=== PATIENT | female | born 1960 | race Caucasian/White ===

== ENCOUNTER → 2017-09-23 | Outpatient (CLI) | payer BC ==
[~2017-09-23] MED LIST: Aspirin EC81 MG PO; CRUTCH2 XX; DESL5 PO; DIAZ5 PO; ERGO50000 PO; FEXO60 PO; HYDMOR2 PO; IBUP200 PO; KETO10 PO; Keflex500 MG PO; LEVSOD100 PO; LEVSOD150 PO; LEVSOD25 PO; LIOT25 PO; METO50 PO; MONT10T PO; Norco 5-325 Ta1 EACH PO; OXYACE5T PO; Percocet 5-3251 EACH PO; Phentermine HCl30 MG PO; RXHYDMOR2 PO; [UNRECOGNIZED DRUG - OTHER]; [UNRECOGNIZED DRUG - REMARK]
[2017-09-23 11:29] LABS: BASOPHILS ABSOLUTE AUTO 0.06 K/mm3 (0.00-0.23); BASOPHILS PERCENT AUTO 1 % (0-2); EOSINOPHILS ABSOLUTE AUTO 0.27 K/mm3 (0.00-0.68); EOSINOPHILS PERCENT AUTO 5 % (0-6); Hematocrit 39.5 % (33.0-51.0); Hemoglobin 12.9 g/dL (11.5-16.0); IMMATURE GRAN ABSOLUTE AUTO 0.01 K/mm3 (0.00-0.10); IMMATURE GRAN PERCENT AUTO 0 % (0-1); LYMPHOCYTES ABSOLUTE AUTO 1.44 K/mm3 (0.84-5.20); LYMPHOCYTES PERCENT AUTO 27 % (21-46); MONOCYTES ABSOLUTE AUTO 0.67 K/mm3 (0.16-1.47); MONOCYTES PERCENT AUTO 13 % (4-13); Mean Corpuscular HGB 29.7 pg (26.0-34.0); Mean Corpuscular HGB Conc 32.7 g/dL (31.5-36.5); Mean Corpuscular Volume 91 fL (80-100); Mean Platelet Volume 10.7 fL (9.1-12.4); NEUTROPHILS ABSOLUTE AUTO 2.84 K/mm3 (1.96-9.15); NEUTROPHILS PERCENT AUTO 54 % (41-73); Platelet Count 324 K/mm3 (150-400); RDW Coefficient Variation 12.2 % (11.7-14.2); RDW Standard Deviation 40.7 fL (35.1-46.3); Red Blood Cell Count 4.35 M/mm3 (3.80-5.20); White Blood Cell Count 5.29 K/mm3 (4.00-11.30)
[2017-09-23 11:45] LABS: Alanine Aminotransfer (ALT/SGP 24 U/L (12-78); Albumin, Blood 3.6 g/dL (3.4-5.0); Alk Phos 90 U/L (50-136); Anion Gap 4 mmol/L (6-16); Aspartate Aminotrans (AST/SGOT 14 U/L (12-37); Bilirubin, Total 0.3 mg/dL (0.1-1.0); Blood Urea Nitrogen 16 mg/dL (8-24); CHOL/HDL RATIO 2.6; CO2, Blood 28 mmol/L (21-32); Calcium, Blood 8.6 mg/dL (8.5-10.1); Chloride, Blood 109 mmol/L (98-108); Cholesterol 149 mg/dL (50-200); Free Thyroxine 1.05 ng/dL (0.70-1.60); Globulin, Blood 3.7 g/dL (2.2-4.0); Glucose, Blood 91 mg/dL (70-99); HDL Cholesterol 57 mg/dL (>39); LDL/HDL RATIO 1.4; Low Density Lipoprotein Chol 81 mg/dL (0-110); Potassium, Blood 4.8 mmol/L (3.5-5.5); Sodium, Blood 141 mmol/L (136-145); Total Protein, Blood 7.3 g/dL (6.4-8.2); Triglycerides 56 mg/dL (30-160); Very Low Density Lipoprot Chol 11 mg/dL (6-32)
[2017-09-23 11:58] LABS: Bun/Creatinine Ratio 17.2 (12.0-20.0); Creatinine, Blood 0.93 mg/dL (0.40-1.00); Glomerular Filtration Rate >60 (60-); Thyroid Stimulating Hormone 0.186 uIU/mL (0.360-4.800)
== END | disposition home or self-care (01) ==
LOC: LAB 11:00
PROVIDERS: Internal Medicine
DX: Z00.00 Encounter for general adult medical examination without abnormal findings (principal); E78.5 Hyperlipidemia, unspecified; E03.9 Hypothyroidism, unspecified; J30.89 Other allergic rhinitis; R53.83 Other fatigue
CPT/HCPCS: 80053; 80061; 84439; 84443; 84481; 85025

== ENCOUNTER 2018-02-20 11:21 | Emergency (ER) | payer BC ==
[~2018-02-20] VITALS: Ht 175.3 cm; Wt 78.9 kg
[~2018-02-20 11:21] MED LIST changes: -CRUTCH2 XX; -Norco 5-325 Ta1 EACH PO
[2018-02-20] MEDS ORDERED: Norco 5-325 Ta1 EACH PO (12:42)
[2018-02-20] MEDS ORDERED: CRUTCH2 XX (12:44)
== END 2018-02-20 13:31 | disposition home or self-care (01) ==
LOC: ER 11:21
DX: S82.62XA Displaced fracture of lateral malleolus of left fibula, initial encounter for closed fracture (principal); E03.9 Hypothyroidism, unspecified; Z88.8 Allergy status to other drugs, medicaments and biological substances; Z88.2 Allergy status to sulfonamides; Z88.1 Allergy status to other antibiotic agents; Z79.899 Other long term (current) drug therapy; Z79.82 Long term (current) use of aspirin; W01.10XA Fall on same level from slipping, tripping and stumbling with subsequent striking against unspecified object, initial encounter
CPT/HCPCS: 29515; 73610; 96372; 99283-25; J1885

== ENCOUNTER 2018-07-25 05:55 | Day surgery (SDC) | payer BC ==
[~2018-07-25] VITALS: Ht 175.3 cm; Wt 81.7 kg
[~2018-07-25 05:55] MED LIST changes: +BUDE10.22 INH; +CRUTCH2 XX; +DILT30 PO; +Flovent 44 mc10.6 GM; +Hair, Skin & N1 EACH PO; +Norco 5-325 Ta1 EACH PO; +Oxybutynin Chlor5 M1 PO; +Pataday2.5 ML BOTHEYES
--- NOTE | 2018-07-25 06:17 | NUR ---
History, Chart, Medications and Allergies reviewed before start of procedure. Patient confirms NPO status and agrees with scheduled surgery. Patient States Post-Procedure ride home has been arranged with his or her friend, Hoa.
--- NOTE | 2018-07-25 08:54 | NUR ---
STATES HANDS AND FEET SWOLLEN PRIOR TO SURGERY
--- NOTE | 2018-07-25 09:38 | NUR ---
pt arrived to room 231 from pacu pt is s/p a&p repair and with sling tvt and cystoscopy pt denies pain except l shoulder warm blanket placed also encouraged pt to drink soda to belch or amb to help pass gas pt has hint of pink to baldwin no vag bleeding pt cold warm blankets and kpad placed
--- NOTE | 2018-07-25 11:07 | NUR ---
DR Fior DIAZ BY TO SEE PT SMITA EMPTIED DISCUSSED ORDERING ORAL NORCO STATED SHE DID ON THE PAPER ORDER FOR DAY SURG WILL FAX
--- NOTE | 2018-07-25 12:09 | NUR ---
vag bleeding new pad placed pt req pain meds 1 tab norco given with soup
[2018-07-25] MEDS ORDERED: IBUP800 PO (14:04)
--- NOTE | 2018-07-25 14:13 | NUR ---
PT REQ A SNACK ICE CREAM GIVEN
--- NOTE | 2018-07-25 16:28 | NUR ---
pt oob to void agian still having dizziness and nausea b/p when up was 89/47
--- NOTE | 2018-07-25 17:35 | NUR ---
LR BOLUS COMPLETE PT STILL GETTING DIZZY B/P AFTER GETTING BACK INTO BED AFTER VOID WAS 102/60
--- NOTE | 2018-07-25 18:30 | NUR ---
PT EATING DINNER PT STATED THE DIZZINESS IS GETTING BETTER OVERALL NAUSEA IS BETTER
--- NOTE | 2018-07-26 05:24 | NUR ---
POD 1 S/P A&P REPAIR ON EXT RECOVERY. HAS DONE VERY WELL. DENIES ANY DIZZINESS WHEN OOB. DENIES N/V. PAIN IS MINIMAL AND DENIES ANY NEED FOR PAIN MEDICATION. VAG BLEEDING IS MINIMAL. STILL SOMEWHAT HYPOTENSIVE BUT REMAINS ASYMPTOMATIC. PLAN FOR DC HOME TODAY. CALL LIGHT IN REACH.
--- NOTE | 2018-07-26 07:47 | NUR ---
pt sleeping wakes to verbal stimuli pt stated no dizziness last 2 times she has got up to void also voiding around 300 each time hint of pink and small amt of vag bleeding on germaine pad no nausea this am pain 07/28
--- NOTE | 2018-07-26 09:36 | NUR ---
discharge instructions reviewed with pt verbalized hermila breakfast iv sl awaiting ride
--- NOTE | 2018-07-26 11:20 | NUR ---
WC ESCORT TO CAR NO ACUTE CHANGES
== END 2018-07-26 11:13 | disposition home or self-care (01) ==
LOC: ORSCMMR 05:55 → ORD 07:30 → ORSCMMR 07:30 → SURS 09:29 → ORSCMMR 07-26 11:13
PROVIDERS: Obstetrics & Gynecology
PROC: 0TSD0ZZ Reposition Urethra, Open Approach (ICD-10-PCS; principal; 2018-07-25 07:30)
PROC: 0TJB8ZZ Inspection of Bladder, Via Natural or Artificial Opening Endoscopic (ICD-10-PCS; principal; 2018-07-25 07:30)
PROC: 0JQC0ZZ Repair Pelvic Region Subcutaneous Tissue and Fascia, Open Approach (ICD-10-PCS; principal; 2018-07-25 07:30)
DX: N81.10 Cystocele, unspecified (principal); N39.3 Stress incontinence (female) (male); E03.9 Hypothyroidism, unspecified; Z79.899 Other long term (current) drug therapy
CPT/HCPCS: C1771; J0690; J1100; J1885; J2250; J2405; J2550; J3010; J7030; J7120

== ENCOUNTER → 2018-08-03 | Outpatient (CLI) | payer BC ==
[~2018-08-03] MED LIST changes: +IBUP800 PO
[2018-08-03 18:51] LABS: Bilirubin, Urine Neg (Neg); Blood, Urine 5+ (Neg); Glucose Qualitative, Urine Neg (Neg); Ketones, Urine Neg (Neg); Leukocyte Esterase, Urine 1+ (Neg); Nitrite, Urine Neg (Neg); Protein, Urine Neg (Neg); Urobilinogen, Urine NORM (Normal)
[2018-08-03 19:41] LABS: Appearance, Urine Hazy (Clear); Color, Urine Yellow (P-Yellow)
[2018-08-03 19:46] LABS: Bacteria Mod /hpf; Calcium Oxalate Crystals Mod /hpf; Squamous Epithelial Cells Few /hpf (Few)
[2018-08-03 19:50] LABS: Mucus Light (0-Heavy)
== END | disposition home or self-care (01) ==
LOC: LAB 18:15 → LAB SHORT 18:15
PROVIDERS: Obstetrics & Gynecology
DX: R30.0 Dysuria (principal)
CPT/HCPCS: 81001; 87086

== ENCOUNTER 2018-09-28 09:53 | Day surgery (SDC) | payer BC | END 2018-09-28 23:01 | disposition home or self-care (01) | LOC: CT 09:53 | DX: N94.89 Other specified conditions associated with female genital organs and menstrual cycle (principal) | CPT/HCPCS: 49406; 88108 ==

== ENCOUNTER → 2019-03-06 | Outpatient (CLI) | payer BC ==
[2019-03-08 14:07] LABS: HPV 16 Negative (Negative); HPV 18 Negative (Negative); HPV OTHER HR TYPES Negative (Negative)
== END | disposition home or self-care (01) ==
LOC: LAB 09:49 → LAB SHORT 09:49
PROVIDERS: Obstetrics & Gynecology
DX: Z01.419 Encounter for gynecological examination (general) (routine) without abnormal findings (principal)
CPT/HCPCS: 87624; G0123

== ENCOUNTER → 2020-02-23 | Outpatient (CLI) | payer OTHER, BC ==
[~2020-02-23] MED LIST changes: +Ciloxan5 ML LEFTEYE
[2020-02-24 08:09] LABS: HBSAG SCREEN Negative (Negative); HCV ANTIBODY 0.1 (0.0-0.9); HIV SCREEN 4TH GENERATION WRFX Non Reactive (Non Reactive)
== END | disposition home or self-care (01) ==
LOC: LAB SHORT 15:44 → LAB EV 15:44
PROVIDERS: Physician Assistant Surgical
DX: Z20.9 Contact with and (suspected) exposure to unspecified communicable disease (principal)
CPT/HCPCS: 84460; 86317; 86803; 87340; 87389

== ENCOUNTER → 2020-06-28 | Outpatient (CLI) | payer OTHER ==
[2020-06-29 08:09] LABS: HCV ANTIBODY <0.1 (0.0-0.9); HIV SCREEN 4TH GENERATION WRFX Non Reactive (Non Reactive)
== END | disposition home or self-care (01) ==
LOC: EDSTATUS 11:56 → LAB EV 14:51 → LAB SHORT 14:51
PROVIDERS: General Practice
DX: Z20.9 Contact with and (suspected) exposure to unspecified communicable disease (principal)
CPT/HCPCS: 84460; 86317; 86803; 87389

== ENCOUNTER → 2021-07-17 | Outpatient (CLI) | payer BC ==
[2021-07-22 15:08] LABS: HPV 16 Negative (Negative); HPV 18 Negative (Negative); HPV OTHER HR TYPES Negative (Negative)
== END | disposition home or self-care (01) ==
LOC: LAB SHORT 18:40
PROVIDERS: Obstetrics & Gynecology
DX: Z01.419 Encounter for gynecological examination (general) (routine) without abnormal findings (principal)
CPT/HCPCS: 87624; G0123

== ENCOUNTER → 2022-08-06 | Outpatient (CLI) | payer BC ==
[2022-08-08 14:10] LABS: HPV 16 Negative (Negative); HPV 18 Negative (Negative); HPV OTHER HR TYPES Negative (Negative)
== END | disposition home or self-care (01) ==
LOC: RAD SHORT 10:15
PROVIDERS: Obstetrics & Gynecology
DX: Z01.419 Encounter for gynecological examination (general) (routine) without abnormal findings (principal)
CPT/HCPCS: 87624; G0145

== ENCOUNTER 2022-08-26 23:23 | Emergency (ER) | payer BC ==
[~2022-08-26] VITALS: Ht 172.7 cm; Wt 81.7 kg
[2022-08-26] MEDS ORDERED: GEMTESA75 MG PO (23:36)
[2022-08-26] MEDS ORDERED: SYNTHROID125 MC1 (23:37)
[2022-08-27 00:03] LABS: BASOPHILS PERCENT AUTO 1 % (0-2); EOSINOPHILS ABSOLUTE AUTO 0.46 K/mm3 (0.00-0.68); EOSINOPHILS PERCENT AUTO 5 % (0-6); Hematocrit 39.1 % (33.0-51.0); Hemoglobin 13.6 g/dL (11.5-16.0); IMMATURE GRAN ABSOLUTE AUTO 0.03 K/mm3 (0.00-0.10); IMMATURE GRAN PERCENT AUTO 0 % (0-1); LYMPHOCYTES ABSOLUTE AUTO 3.52 K/mm3 (0.84-5.20); LYMPHOCYTES PERCENT AUTO 39 % (21-46); MONOCYTES ABSOLUTE AUTO 0.82 K/mm3 (0.16-1.47); MONOCYTES PERCENT AUTO 9 % (4-13); Mean Corpuscular HGB 30.2 pg (26.0-34.0); Mean Corpuscular HGB Conc 34.8 g/dL (31.5-36.5); Mean Corpuscular Volume 87 fL (80-100); Mean Platelet Volume 10.5 fL (9.1-12.4); NEUTROPHILS ABSOLUTE AUTO 4.17 K/mm3 (1.96-9.15); NEUTROPHILS PERCENT AUTO 46 % (41-73); Platelet Count 356 K/mm3 (150-400); RDW Coefficient Variation 12.2 % (11.7-14.2); RDW Standard Deviation 38.9 fL (35.1-46.3)
[2022-08-27 00:24] LABS: Albumin, Blood 3.7 g/dL (3.4-5.0); Bilirubin, Total 0.4 mg/dL (0.1-1.0); Bun/Creatinine Ratio 17.8 (12.0-20.0); Calcium, Blood 9.1 mg/dL (8.5-10.1); Creatinine, Blood 1.01 mg/dL (0.40-1.00); Globulin, Blood 3.7 g/dL (2.2-4.0); Potassium, Blood 3.5 mmol/L (3.5-5.5); Total Protein, Blood 7.4 g/dL (6.4-8.2)
== END 2022-08-27 04:41 | disposition home or self-care (01) ==
LOC: ER 23:23
PROVIDERS: Emergency Medicine
DX: R07.9 Chest pain, unspecified (principal); E03.9 Hypothyroidism, unspecified; Z88.2 Allergy status to sulfonamides; Z88.1 Allergy status to other antibiotic agents; Z88.8 Allergy status to other drugs, medicaments and biological substances; Z79.899 Other long term (current) drug therapy
CPT/HCPCS: 71045; 80053; 84484; 85025; 93005; 93010; 99285-25

== ENCOUNTER 2023-04-28 07:37 | Day surgery (SDC) | payer BC ==
[~2023-04-28] VITALS: Ht 175.3 cm; Wt 84.9 kg
[~2023-04-28 07:37] MED LIST changes: +GEMTESA75 MG PO; +SYNTHROID125 MC1
[2023-04-28] MEDS ORDERED: Ventolin5 MG/1 ML (08:08)
[2023-04-28] MEDS ORDERED: EPIPEN0.3 MG/0.3 (08:08)
[2023-04-28] MEDS ORDERED: 1/2 NS 250ml250 ML (08:08)
[2023-04-28] MEDS ORDERED: CLIMARA1 EACH (08:08)
[2023-04-28] MEDS ORDERED: ASPI81CH (08:08)
[2023-04-28] MEDS ORDERED: MONT5TCH (08:09)
[2023-04-28] MEDS ORDERED: Prozac40 MG (08:09)
[2023-04-28] MEDS ORDERED: METO25ER (08:09)
[2023-04-28] MEDS ORDERED: Phentermine HCl30 MG (08:09)
[2023-04-28 10:27] VITALS: BP 109/86
== END 2023-04-28 10:52 | disposition home or self-care (01) ==
LOC: ORSCSDS 07:37
PROVIDERS: Internal Medicine Gastroenterology
PROC: 0D757ZZ Dilation of Esophagus, Via Natural or Artificial Opening (ICD-10-PCS; principal; 2023-04-28 09:00)
PROC: 0DJD8ZZ Inspection of Lower Intestinal Tract, Via Natural or Artificial Opening Endoscopic (ICD-10-PCS; principal; 2023-04-28 09:00)
PROC: 0DB78ZX Excision of Stomach, Pylorus, Via Natural or Artificial Opening Endoscopic, Diagnostic (ICD-10-PCS; principal; 2023-04-28 09:00)
DX: Z12.11 Encounter for screening for malignant neoplasm of colon (principal); R13.10 Dysphagia, unspecified; K57.30 Diverticulosis of large intestine without perforation or abscess without bleeding; K64.8 Other hemorrhoids; I47.10 Supraventricular tachycardia, unspecified; E78.5 Hyperlipidemia, unspecified; E03.9 Hypothyroidism, unspecified; Z79.899 Other long term (current) drug therapy; Z79.82 Long term (current) use of aspirin
CPT/HCPCS: 43239; 43450; G0121; 88305; 88342; J2704; J7120

== ENCOUNTER 2023-05-12 06:14 | Observation (INO) | payer BC ==
[~2023-05-12] VITALS: Ht 175.3 cm; Wt 89.6 kg
[~2023-05-12 06:14] MED LIST changes: +1/2 NS 250ml250 ML; +ASPI81CH; +CLIMARA1 EACH; +EPIPEN0.3 MG/0.3; +METO25ER PO; +MONT5TCH; +Prozac40 MG PO; -SYNTHROID125 MC1; +SYNTHROID125 MC1 PO; +Ventolin5 MG/1 ML
--- NOTE | 2023-05-12 07:40 | NUR ---
05/12/23 0740 Lalitha Hernandez PT DELAYED GOING BACK TO OR. DR DONNELLY RETURNED TO SEE PT TO HAVE CONSENT FORM SIGNED.
--- NOTE | 2023-05-12 08:21 | NUR ---
05/12/23 0821 Marylou Hinojosa LIDOCAINE 2% WITH EPI 1:100,000 MIXED 1:1 WITH NORMAL SALINE TO MAKE LIDOCAINE 1% WITH EPI 1:200,000 FOR INJECTION AT THE OPSITE BY DR DONOVAN. 30ML OF EPI (1MG/ML) USED TO SOAK PLEDGETS FOR NASAL PACKING DONE BY DR DONOVAN.
--- NOTE | 2023-05-12 12:00 | NUR ---
05/12/23 [place] GIBSON PT WAS PLACED ON 10L O2 VIA FACE TENT. O2 HAD DROPPED TO 92% CURRENTLY PT O2 IS 100%. WILL DECREASE O2 TO 5L. PT DENIES PAIN AND NAUSEA.
--- NOTE | 2023-05-12 12:39 | NUR ---
05/12/23 1239 AZ HOWELL PT STATES PAIN NOW 10/26. ICE TO BRIDGE OF HER NOSE. PT COMFORTABLE IN BED. PT WAS PLACED BACK ON OXYGEN 5L AFTER DOSE OF FENTANYL DECREASED O2 TO 93% ON RA
[2023-05-12 17:46] VITALS: BP 138/80
--- NOTE | 2023-05-12 17:55 | NUR ---
PATIENT ARRIVED TODAY FROM DAY SURGERY. POD 0 SENOPLASTY PATIENT IS DROWSY BUT IS A&OX4. PATIENT HAD A SMALL AMOUNT OF EMESIS UPON ARRIVAL TO THE UNIT WHICH CAUSED HER NOSE TO START BLEEDING. THIS NURSE GAVE IV ZOFRAN AND FENTANYL TO MANAGE THE NAUSEA AND PAIN. THIS NURSE APPLIED A SMALL ROLL OF GAUZE WITH MEDIPORE TAPE UNDER HER NOSE THAT IS C/D/I AT THE MOMENT. SHE IS TOLERATING SMALL AMOUNTS OF PO INTAKE. SHE IS CURRENTLY LAYING IN BED WITH HOB ABOVE 30 DEGREES WITH ICE PACKS ON HER UPPER BACK/NOSE. CALL LIGHT WITHIN REACH.
[2023-05-12 18:03] LABS: BASOPHILS ABSOLUTE AUTO 0.02 K/mm3 (0.00-0.23); BASOPHILS PERCENT AUTO 0 % (0-2); EOSINOPHILS PERCENT AUTO 0 % (0-6); Hematocrit 35.7 % (33.0-51.0); Hemoglobin 11.7 g/dL (11.5-16.0); IMMATURE GRAN ABSOLUTE AUTO 0.12 K/mm3 (0.00-0.10); IMMATURE GRAN PERCENT AUTO 1 % (0-1); LYMPHOCYTES ABSOLUTE AUTO 1.14 K/mm3 (0.84-5.20); LYMPHOCYTES PERCENT AUTO 8 % (21-46); MONOCYTES ABSOLUTE AUTO 0.27 K/mm3 (0.16-1.47); MONOCYTES PERCENT AUTO 2 % (4-13); Mean Corpuscular HGB 29.8 pg (26.0-34.0); Mean Corpuscular HGB Conc 32.8 g/dL (31.5-36.5); Mean Corpuscular Volume 91 fL (80-100); Mean Platelet Volume 10.3 fL (9.1-12.4); NEUTROPHILS ABSOLUTE AUTO 12.34 K/mm3 (1.96-9.15); NEUTROPHILS PERCENT AUTO 89 % (41-73); Platelet Count 336 K/mm3 (150-400); RDW Coefficient Variation 13.5 % (11.7-14.2); RDW Standard Deviation 44.8 fL (35.1-46.3); Red Blood Cell Count 3.92 M/mm3 (3.80-5.20); White Blood Cell Count 13.89 K/mm3 (4.00-11.30)
--- NOTE | 2023-05-12 18:03 | NUR ---
THIS NURSE CALLED DR. DONOVAN SINCE PATIENT KEPT REQUESTING FOR SALINE NASAL FLUSH. DR. DONOVAN STATED "WAIT TO TRY IT TOMORROW. I WILL ASSESS HER TOMORROW WELL".
[2023-05-12 18:25] LABS: Albumin, Blood 3.4 g/dL (3.4-5.0); Bilirubin, Total 0.3 mg/dL (0.1-1.0); Bun/Creatinine Ratio 15.5 (12.0-20.0); Calcium, Blood 8.3 mg/dL (8.5-10.1); Creatinine, Blood 0.9 mg/dL (0.40-1.00); Globulin, Blood 3.4 g/dL (2.2-4.0); Potassium, Blood 4.7 mmol/L (3.5-5.5); Total Protein, Blood 6.8 g/dL (6.4-8.2)
[2023-05-12 21:05] VITALS: BP 113/72
[2023-05-12 23:11] LABS: Hematocrit 33.9 % (33.0-51.0); Hemoglobin 11.4 g/dL (11.5-16.0)
[2023-05-13 00:42] VITALS: BP 114/59
--- NOTE | 2023-05-13 04:51 | NUR ---
SHIFT SUMMARY POD 1 SENOPLASTY. NO ACUTE CHNAGES OVERNIGHT. VS WNL FOR PT. GAUZE MUSTACHE IN PLACE, DRAINING SANGUINOUS FLUID WITH SCANT CLOTS. DRESSING CHANGED TWICE THIS SHIFT WITHOUT COMPLETE SATURATION OF GAUZE. PT REPORTS NO N/V, MILD DISCOMFORT FROM BRIGHT LIGHTS. ICE PACKS USED ON THE NOSE AND BEHIND THE NECK FOR PAIN. NO REPORTED PAIN AT THIS TIME. PT AMBULATING & VOIDING INDEPENDENTLY. TOLERATING CLEARS. PT SLEPT WELL THROUGHOUT THE NIGHT. ANTICIPATED DISCHARGE LATER TODAY. CALL LIGHT WITHIN REACH, BED IN LOWEST POSITION, WILL REPORT TO DAY RN.
[2023-05-13 04:52] VITALS: BP 117/65
[2023-05-13 04:56] LABS: BASOPHILS ABSOLUTE AUTO 0.02 K/mm3 (0.00-0.23); BASOPHILS PERCENT AUTO 0 % (0-2); EOSINOPHILS ABSOLUTE AUTO 0.08 K/mm3 (0.00-0.68); EOSINOPHILS PERCENT AUTO 1 % (0-6); Hematocrit 32.6 % (33.0-51.0); Hemoglobin 10.7 g/dL (11.5-16.0); IMMATURE GRAN ABSOLUTE AUTO 0.08 K/mm3 (0.00-0.10); IMMATURE GRAN PERCENT AUTO 1 % (0-1); LYMPHOCYTES ABSOLUTE AUTO 2.69 K/mm3 (0.84-5.20); LYMPHOCYTES PERCENT AUTO 22 % (21-46); MONOCYTES PERCENT AUTO 7 % (4-13); Mean Corpuscular HGB 29.8 pg (26.0-34.0); Mean Corpuscular HGB Conc 32.8 g/dL (31.5-36.5); Mean Corpuscular Volume 91 fL (80-100); Mean Platelet Volume 10.5 fL (9.1-12.4); NEUTROPHILS ABSOLUTE AUTO 8.54 K/mm3 (1.96-9.15); NEUTROPHILS PERCENT AUTO 69 % (41-73); Platelet Count 324 K/mm3 (150-400); RDW Coefficient Variation 13.3 % (11.7-14.2); RDW Standard Deviation 44.6 fL (35.1-46.3); Red Blood Cell Count 3.59 M/mm3 (3.80-5.20); White Blood Cell Count 12.31 K/mm3 (4.00-11.30)
[2023-05-13 05:26] LABS: Albumin, Blood 3.1 g/dL (3.4-5.0); Albumin/Globulin Ratio 1.1 (0.8-1.8); Bilirubin, Total 0.5 mg/dL (0.1-1.0); Bun/Creatinine Ratio 13.8 (12.0-20.0); Calcium, Blood 8.3 mg/dL (8.5-10.1); Creatinine, Blood 0.94 mg/dL (0.40-1.00); Globulin, Blood 2.9 g/dL (2.2-4.0); Potassium, Blood 4.4 mmol/L (3.5-5.5)
[2023-05-13 07:20] VITALS: BP 122/76
--- NOTE | 2023-05-13 13:06 | NUR ---
Spiritual care visit conducted. Patient is known to this engineering technical writer. Patient tells me about her surgery and the palns moving forward. We discuss how to grow and heal in a setting of loss and struggle. I reinforce helpful ideas and perspectives, and provide therapeutic listening and prayer. Patient responded well and showed signs of an elevated mood. I will continue to remain available to patient.
--- NOTE | 2023-05-13 14:53 | NUR ---
DISCHARGE DR DONOVAN VISITED PT. OK'd FOR DC. TOLERATED REGULAR DIET. NO BLEEDING. ESCORTED OUT VIA WC.
== END 2023-05-13 14:55 | disposition home or self-care (01) ==
LOC: ORSCSDS 06:14 → SURS 16:48 → ORSCSDS 16:49 → SURS 05-13 14:55
PROVIDERS: Otolaryngology; ADMIT Internal Medicine
PROC: 09SM4ZZ Reposition Nasal Septum, Percutaneous Endoscopic Approach (ICD-10-PCS; principal; 2023-05-12 07:30)
PROC: 09TU8ZZ Resection of Right Ethmoid Sinus, Via Natural or Artificial Opening Endoscopic (ICD-10-PCS; principal; 2023-05-12 07:30)
DX: J32.8 Other chronic sinusitis (principal); J34.2 Deviated nasal septum; J34.3 Hypertrophy of nasal turbinates; D50.0 Iron deficiency anemia secondary to blood loss (chronic); E03.9 Hypothyroidism, unspecified; Z88.2 Allergy status to sulfonamides; Z88.1 Allergy status to other antibiotic agents; Z88.8 Allergy status to other drugs, medicaments and biological substances
CPT/HCPCS: 36415; 80053; 85014; 85018; 85025; 88305; 88311; 88312; 93005; 93010; 94762; 96374; 96375; A9270; C2625; G0378; J0171; J1100; J1170; J2250; J2371; J2405; J2704; J3010; J7030; J7120

== ENCOUNTER 2024-05-07 17:18 | Emergency (ER) | payer OTHER, BC ==
[~2024-05-07] VITALS: Ht 175.3 cm; Wt 79.4 kg
[2024-05-07 17:41] VITALS: BP 117/49
== END 2024-05-07 17:45 | disposition home or self-care (01) ==
LOC: ER 17:18
PROVIDERS: Physician Assistant
DX: Z77.21 Contact with and (suspected) exposure to potentially hazardous body fluids (principal); Z88.8 Allergy status to other drugs, medicaments and biological substances; Z88.1 Allergy status to other antibiotic agents; Z88.2 Allergy status to sulfonamides; Z79.82 Long term (current) use of aspirin; Z79.899 Other long term (current) drug therapy; E03.9 Hypothyroidism, unspecified
CPT/HCPCS: 36415; 84460

== ENCOUNTER 2024-07-20 06:27 | Day surgery (SDC) | payer BC ==
[~2024-07-20] VITALS: Ht 175.3 cm; Wt 88.8 kg
[2024-07-20] MEDS ORDERED: Lactated Ringer's 1,000 ML IV ONE ×2 (07:25→07:47)
[2024-07-20] MEDS ORDERED: propofoL 50 ML IV ONE (07:25)
[2024-07-20 09:13] VITALS: BP 127/84
== END 2024-07-20 09:12 | disposition home or self-care (01) ==
LOC: ORSCSDS 06:27
PROVIDERS: Internal Medicine Gastroenterology
PROC: 0DJ08ZZ Inspection of Upper Intestinal Tract, Via Natural or Artificial Opening Endoscopic (ICD-10-PCS; principal; 2024-07-20 08:00)
PROC: 0D757ZZ Dilation of Esophagus, Via Natural or Artificial Opening (ICD-10-PCS; principal; 2024-07-20 08:00)
DX: R13.10 Dysphagia, unspecified (principal); K21.00 Gastro-esophageal reflux disease with esophagitis, without bleeding; E78.5 Hyperlipidemia, unspecified; J45.909 Unspecified asthma, uncomplicated; E03.9 Hypothyroidism, unspecified; Z79.899 Other long term (current) drug therapy
CPT/HCPCS: 88305; J2704; J7120